=== PATIENT | female | born 1940 | race Caucasian/White ===

== ENCOUNTER → 2016-04-25 | Outpatient (CLI) | payer MEDICARE, BC ==
[2016-04-25 17:45] LABS: ALT 54 U/L (9-52); AST 82 U/L (14-36); Alkaline Phosphatase 67 U/L (38-126); Anion Gap 11 mmol/L; Blood Urea Nitrogen 17 mg/dL (7-17); Calcium 9.8 mg/dL (8.4-10.2); Carbon Dioxide 30 mmol/L (22-30); Chloride 102 mmol/L (98-107); Glucose 139 mg/dL (74-99); Non-African American GFR(MDRD) >60 (>60 ml/min/1.73 sqM); Potassium 4.1 mmol/L (3.5-5.1); Sodium 143 mmol/L (137-145); Total Bilirubin 0.4 mg/dL (0.2-1.3); Total Protein 7.3 g/dL (6.3-8.2)
== END | disposition home or self-care (01) ==
LOC: LABWHC1 16:41
PROVIDERS: ATTEND Internal Medicine Endocrinology, Diabetes & Metabolism
DX: E21.0 Primary hyperparathyroidism (principal); E03.9 Hypothyroidism, unspecified
CPT/HCPCS: 36415; 80053; 82306; 83970; 84443

== ENCOUNTER → 2016-08-08 | Outpatient (CLI) | payer MEDICARE, BC ==
[2016-08-08 13:20] LABS: ALT 30 U/L (9-52); AST 39 U/L (14-36); Alkaline Phosphatase 71 U/L (38-126); Anion Gap 8 mmol/L; Blood Urea Nitrogen 17 mg/dL (7-17); Calcium 9.9 mg/dL (8.4-10.2); Carbon Dioxide 28 mmol/L (22-30); Chloride 105 mmol/L (98-107); Glucose 80 mg/dL (74-99); Non-African American GFR(MDRD) >60 (>60 ml/min/1.73 sqM); Potassium 4.4 mmol/L (3.5-5.1); Sodium 141 mmol/L (137-145); Total Bilirubin 0.6 mg/dL (0.2-1.3); Total Protein 7.4 g/dL (6.3-8.2)
== END | disposition home or self-care (01) ==
LOC: LABWHC1 12:02
PROVIDERS: ATTEND Internal Medicine Endocrinology, Diabetes & Metabolism
DX: E03.8 Other specified hypothyroidism (principal); E21.0 Primary hyperparathyroidism
CPT/HCPCS: 36415; 80053; 82306; 83970; 84443

== ENCOUNTER → 2016-12-13 | Outpatient (CLI) | payer MEDICARE, BC ==
[2016-12-13 13:59] LABS: ALT 31 U/L (9-52); AST 30 U/L (14-36); Alkaline Phosphatase 74 U/L (38-126); Anion Gap 7 mmol/L; Blood Urea Nitrogen 16 mg/dL (7-17); Calcium 9.8 mg/dL (8.4-10.2); Carbon Dioxide 29 mmol/L (22-30); Chloride 105 mmol/L (98-107); Glucose 79 mg/dL (74-99); Non-African American GFR(MDRD) >60 (>60 ml/min/1.73 sqM); Potassium 4.9 mmol/L (3.5-5.1); Sodium 141 mmol/L (137-145); Total Bilirubin 0.4 mg/dL (0.2-1.3); Total Protein 7.2 g/dL (6.3-8.2)
== END | disposition home or self-care (01) ==
LOC: LABWHC1 13:12
PROVIDERS: ATTEND Internal Medicine Endocrinology, Diabetes & Metabolism
DX: E21.0 Primary hyperparathyroidism (principal); E55.9 Vitamin D deficiency, unspecified; E03.8 Other specified hypothyroidism
CPT/HCPCS: 36415; 80053; 82306; 83970; 84443

== ENCOUNTER → 2017-04-25 | Outpatient (CLI) | payer MEDICARE, BC ==
--- NOTE | 2017-04-25 16:16 | BD ---
EXAMINATION TYPE: MG DEXA axial skeleton. DATE OF EXAM: 04/25/2017 COMPARISON: NONE CLINICAL HISTORY: Height: 67 Weight: 67 FRAX RISK QUESTIONS: Alcohol (3 or more units per day): no Family History (Parent hip fracture): no Glucocorticoids (More than 3mos): no (Ex: prednisone, prednisolone, methylprednisolone, dexamethasone, and hydrocortisone). History of Fracture in Adulthood: no Secondary Osteoporosis: 1. Type 1 Diabetes: no 2. Hyperthyroidism: no 3. Menopause before 45: no 4. Malnutrition: no 5. Chronic liver disease: no Rheumatoid Arthritis: no Current Tobacco Use: no RISK FACTORS HISTORY OF: Hip Fracture (Right/Left): no Spine Fracture: no History of Wrist Fracture: no Surgery to Spine/Hip(right/left)/Wrist (right/left): no Family History of Osteoporosis: yes Active: yes Diet low in dairy products/other sources of calcium: no Postmenopausal woman: age 54 Lost more than 2 inches in height since high school: yes Frequent falls: no Poor Health: no Hyperparathyroidism: no Adrenal Insufficiency: no MEDICATIONS: vit d, baby aspirin, vit e, calcium Thyroid Medications: levothyroxine How Lon year Additional History: EXAM MEASUREMENTS: Bone mineral densitometry was performed using the [employer] System. Bone mineral density as measured about the Lumbar spine is: ----- L1-L4(G/cm2): 1.047 T Score Values are as follows: ----- L2: -0.8 ----- L3: -0.9 ----- L4: -1.8 ----- L1-L4: -1.1 Bone mineral density has: decreased -0.8 % since study of: 03.16.2015 Bone mineral density about the R hip (g/cm2): 0.863 Bone mineral density about the L hip (g/cm2): 0.822 T Score values are as follows: -----R Neck: -1.3 -----L Neck: -1.6 -----R Total: -0.9 -----L Total: -0.9 Bone mineral density has: decreased -0.3 % since study of: 03.16.2015 IMPRESSION: Osteopenia (T Score between -2.5 and -1 as noted by T score values There is slightly increased risk of fracture and the patient may be considered for treatment. Re-Screen 2-5 years. NOTE: T-SCORE=SD OF THE YOUNG ADULT MEAN.
--- NOTE | 2017-04-26 11:11 | MM ---
Reason for exam: screening (asymptomatic). Last mammogram was performed 1 year and 1 month ago. History: Patient is postmenopausal and had first child at age 33. Family history of breast cancer in paternal aunt. Benign stereotactic core biopsy of the left breast, February 27, 2002. Benign excisional biopsy of the left breast, July 29, 2001. Stereotactic core biopsy of the left breast, July 18, 2001. Benign stereotactic core biopsy of the left breast, December 27, 2000. Took estrogen for 4 years. Physical Findings: A clinical breast exam by your physician is recommended on an annual basis and results should be correlated with mammographic findings. MG Screening Mammo w CAD Bilateral CC and MLO view(s) were taken. Prior study comparison: March 21, 2016, bilateral MG screening mammo w CAD. March 16, 2015, bilateral MG screening mammo w CAD. There are scattered fibroglandular densities. There is no discrete abnormality. No significant changes when compared with prior studies. ASSESSMENT: Negative, BI-RAD 1 RECOMMENDATION: Routine screening mammogram of both breasts in 1 year.
== END | disposition home or self-care (01) ==
LOC: RADMAMWWP 13:50
PROVIDERS: ATTEND Obstetrics & Gynecology
DX: Z12.31 Encounter for screening mammogram for malignant neoplasm of breast (principal); M85.80 Other specified disorders of bone density and structure, unspecified site; M89.9 Disorder of bone, unspecified
CPT/HCPCS: 77067; 77080

== ENCOUNTER → 2017-05-29 | Outpatient (CLI) | payer MEDICARE, BC ==
[2017-05-29 14:28] LABS: ALT 33 U/L (9-52); AST 28 U/L (14-36); Albumin 4.3 g/dL (3.5-5.0); Alkaline Phosphatase 71 U/L (38-126); Anion Gap 10 mmol/L; Blood Urea Nitrogen 20 mg/dL (7-17); Calcium 10.2 mg/dL (8.4-10.2); Carbon Dioxide 31 mmol/L (22-30); Chloride 102 mmol/L (98-107); Glucose 87 mg/dL (74-99); Potassium 4.6 mmol/L (3.5-5.1); Sodium 143 mmol/L (137-145); Total Bilirubin 0.4 mg/dL (0.2-1.3); Total Protein 7.4 g/dL (6.3-8.2)
[2017-05-29 18:53] LABS: Vitamin D 25 Hydroxy 30.9 ng/mL (30.0-100.0)
== END | disposition home or self-care (01) ==
LOC: LABWHC1 13:27
PROVIDERS: ATTEND Internal Medicine Endocrinology, Diabetes & Metabolism
DX: E03.8 Other specified hypothyroidism (principal); E55.9 Vitamin D deficiency, unspecified; E83.52 Hypercalcemia
CPT/HCPCS: 36415; 80053; 82306; 83970; 84443

== ENCOUNTER → 2017-08-14 | Outpatient (CLI) | payer MEDICARE, BC | END | disposition home or self-care (01) | LOC: LABWHC1 12:25 | PROVIDERS: ATTEND Otolaryngology | DX: H91.91 Unspecified hearing loss, right ear (principal); H93.3X1 Disorders of right acoustic nerve | CPT/HCPCS: 36415; 82565 ==

== ENCOUNTER → 2017-08-29 | Outpatient (CLI) | payer MEDICARE, BC ==
--- NOTE | 2017-08-29 12:17 | MR ---
EXAMINATION TYPE: MR iac wo/w con DATE OF EXAM: 08/29/2017 COMPARISON: NONE HISTORY: Hearing loss TECHNIQUE: Multiplanar, multisequence images of the brain and brainstem is performed without and with IV contras t, utilizing 7 mL intravenous Gadavist . FINDINGS: Diffusion weighted images demonstrate no evidence of a recent infarct or other diffusion ab normality. Craniocervical junction is maintained. There is bilateral mastoiditis and evidence of sinusitis. Mild generalized degenerative change seen and there is nonspecific diffuse and focal areas of abnorma l signal within the white matter. Most likely in the basis of remote microvascular ischemia. No evidence of cerebellopontine angle mass. Visualized oropharynx and nasopharynx symmetric. IMPRESSION: 1. Bilateral mastoiditis and chronic sinusitis. 2. No evidence of cerebellopontine angle mass or acoustic schwannoma. 3. Degenerative and nonspecific white matter changes most typical remote microvascular ischemia.
== END | disposition home or self-care (01) ==
LOC: RADMRIMAIN 08:43
PROVIDERS: ATTEND Otolaryngology
DX: R90.89 Other abnormal findings on diagnostic imaging of central nervous system (principal); H91.91 Unspecified hearing loss, right ear; H93.3X1 Disorders of right acoustic nerve
CPT/HCPCS: 70553; A9581

== ENCOUNTER 2017-09-30 17:29 | Emergency (ER) | payer MEDICARE, BC ==
[2017-09-30 17:53] VITALS: BP 192/79; PULSE 58; RESP 18; TEMP 98.3
[2017-09-30] MEDS ORDERED: DIPH,PERTUS(ACELL)TETVAC-LF 0.5 ML VIAL IM ONE (18:05)
--- NOTE | 2017-09-30 18:26 | ED ---
Wound/Laceration HPI - General Chief Complaint: Wound/Laceration Stated Complaint: head injury, multiple abrasions on arms and legs Time Seen by Provider: 09/30/17 17:57 Source: patient Mode of arrival: ambulatory Limitations: no limitations - History of Present Illness Initial Comments: 77-year-old female patient presents to the emergency department today for evaluation after expressing a head injury and fall. Patient states that she was loading things into the back of her van when her accidentally closed a nunez on her head. Patient states that the corner of the metal piece struck her in the head. She states this causes her to lose her balance and fall down landing on her right knee and right elbow. Patient denies hitting her head during the fall. She denies any loss of consciousness with this. She denies any headache, neck pain, back pain, dizziness, weakness, nausea, or vomiting. She denies any numbness or tingling anywhere. Patient denies any difficulty with range of motion to the right elbow or the right knee. She is unsure when her last tetanus vaccine was given. Patient denies any chest pain, shortness of breath, abdominal pain, or difficulties with bowel movements or urination. - Related Data Allergies Allergy/AdvReac Type Severity Reaction Status Date / Time No Known Allergies Allergy Verified 09/30/17 17:53 Review of Systems ROS Statement: Those systems with pertinent positive or pertinent negative responses have been documented in the HPI. ROS Other: All systems not noted in ROS Statement are negative. Past Medical History Past Medical History: No Reported History History of Any Multi-Drug Resistant Organisms: None Reported Past Surgical History: Ear Surgery Past Psychological History: No Psychological Hx Reported Smoking Status: Current every day smoker Past Alcohol Use History: None Reported Past Drug Use History: None Reported General Exam Limitations: no limitations General appearance: alert, in no apparent distress, other (This is a well- developed, well-nourished elderly female patient in no acute distress. Vital signs upon presentation are temperature 98.3F, pulse 58, respirations 18, blood pressure 192/79, pulse ox 100% on room air.) Head exam: Present: other (2 cm laceration noted to the frontal scalp. There is no step-off or bony deformity noted to palpation around the laceration site. Bleeding is controlled.) Eye exam: Present: normal appearance, PERRL, EOMI. Absent: scleral icterus, conjunctival injection, nystagmus, periorbital swelling ENT exam: Present: normal exam, normal oropharynx, mucous membranes moist Neck exam: Present: normal inspection, full ROM, other (Nontender, no step-off, no deformity to firm midline palpation of the posterior cervical spine. Full range of motion without pain or limitation.). Absent: tenderness, meningismus, lymphadenopathy Respiratory exam: Present: normal lung sounds bilaterally. Absent: respiratory distress, wheezes, rales, rhonchi, stridor Cardiovascular Exam: Present: regular rate, normal rhythm, normal heart sounds. Absent: systolic murmur, diastolic murmur, rubs, gallop, clicks Extremities exam: Present: full ROM, normal capillary refill, other (Patient exhibits mild soft tissue swelling and abrasion to the extensor surface of the right elbow. Patient has full range of motion of the joint, no bony tenderness , skin is pink, warm, and dry. Cap refills less than 3 seconds. Radial pulses are 2+ and equal bilaterally. Patient exhibits ecchymosis, mild soft tissue swelling, and abrasion to the right lateral knee. Patient has full range of motion of the joint. No pain with weightbearing. No bony tenderness. Skin to the lower trauma is is pink, warm, and dry. Cap refills less than 3 seconds. Post tibial pulses are 2+ and equal bilaterally.). Absent: normal inspection, tenderness, pedal edema, joint swelling, calf tenderness Back exam: Present: normal inspection, other (Nontender, no step-off, no deformity to firm midline palpation of the thoracic and lumbar vertebrae. Full range of motion without pain or limitation.). Absent: vertebral tenderness Neurological exam: Present: alert, oriented X3, CN II-XII intact Psychiatric exam: Present: normal affect, normal mood Skin exam: Present: warm, dry, intact, normal color. Absent: rash Course Vital Signs 09/30/17 17:48 Temperature 98.3 F Pulse Rate 58 L Respiratory 18 Rate Blood Pressure 192/79 O2 Sat by Pulse 100 Oximetry Medical Decision Making - Medical Decision Making 77-year-old female patient presents to the emergency department today for evaluation of a laceration to her scalp and multiple abrasions after expressing a fall today. Physical examination did reveal 2 cm laceration to the frontal scalp. There is no bony step-off or deformity noted. Patient had no headache or neurologic complaints. Patient is neurologically intact. Patient also exhibits abrasions to the right elbow and the right knee however she does have full range of motion of both joints with no bony tenderness. I did discuss x- rays with the patient, she does not feel anything is broken or painful enough at this time to need x-rays. We will hold off. Patient does take 81 mg of aspirin but no other anticoagulation. She currently denies headache and again is neurologically intact so we will with hold CT at this time as well. I did insert 2 martha into the scalp laceration. We did discuss signs or symptoms of worsening head injury in great detail. She is instructed to return here immediately for any new, worsening, or concerning symptoms. Also did discuss wound care and signs or symptoms of infection. She is instructed to return in 7 days for staple removal. She is instructed to follow-up with her primary care physician for recheck in 1-2 days. Return parameters discussed in detail. She verbalizes understanding and agrees with this plan. Disposition Clinical Impression: Scalp laceration, Abrasion of right elbow, Abrasion of right knee Disposition: HOME SELF-CARE Condition: Good Instructions: Laceration (ED), Head Injury (ED), Abrasion (ED), Staple Care (ED ) Additional Instructions: Keep wounds clean and dry. Monitor for signs or symptoms of infection including but not limited to redness, swelling, drainage of pus, fever, or chills. Monitor for signs or symptoms of worsening head injury including but not limited to headache, blurred vision, double vision, nausea, vomiting, or confusion. Follow-up with your primary care physician for recheck in 1-2 days. Have martha removed in 7 days. Return here immediately for any new, worsening, or concerning symptoms. Is patient prescribed a controlled substance at d/c from ED?: No Referrals: Ryland Lemus DO [Primary Care Provider] - 1-2 days Time of Disposition: 18:26
== END 2017-09-30 18:32 | disposition home or self-care (01) ==
LOC: EC 17:29
DX: S01.01XA Laceration without foreign body of scalp, initial encounter (principal); S80.01XA Contusion of right knee, initial encounter; S50.311A Abrasion of right elbow, initial encounter; F17.200 Nicotine dependence, unspecified, uncomplicated; Z23 Encounter for immunization; W26.8XXA Contact with other sharp object(s), not elsewhere classified, initial encounter; W18.39XA Other fall on same level, initial encounter; Y93.89 Activity, other specified
CPT/HCPCS: 12001; 90471; 90715; 99283

== ENCOUNTER → 2017-11-20 | Outpatient (CLI) | payer MEDICARE, BC ==
[2017-11-20 15:39] LABS: ALT 32 U/L (9-52); AST 30 U/L (14-36); Albumin 4.3 g/dL (3.5-5.0); Alkaline Phosphatase 64 U/L (38-126); Anion Gap 7 mmol/L; Blood Urea Nitrogen 17 mg/dL (7-17); Carbon Dioxide 28 mmol/L (22-30); Chloride 106 mmol/L (98-107); Glucose 79 mg/dL (74-99); Sodium 141 mmol/L (137-145); Total Bilirubin 0.3 mg/dL (0.2-1.3); Total Protein 7.2 g/dL (6.3-8.2)
[2017-11-20 18:21] LABS: Vitamin D 25 Hydroxy 41.9 ng/mL (30.0-100.0)
[2017-11-20 18:29] LABS: Parathyroid Hormone Intact 69.1 pg/mL (14.0-72.0)
== END | disposition home or self-care (01) ==
LOC: LABWHC1 15:04
PROVIDERS: ATTEND Internal Medicine Endocrinology, Diabetes & Metabolism
DX: E55.9 Vitamin D deficiency, unspecified (principal); E03.8 Other specified hypothyroidism
CPT/HCPCS: 36415; 80053; 82306; 83970; 84443

== ENCOUNTER → 2018-05-12 | Outpatient (CLI) | payer MEDICARE, BC ==
--- NOTE | 2018-05-17 11:22 | MM ---
Reason for exam: screening (asymptomatic). Last mammogram was performed 1 year and 1 month ago. History: Patient is postmenopausal and had first child at age 33. Family history of breast cancer in paternal aunt. Benign stereotactic core biopsy of the left breast, February 27, 2002. Benign excisional biopsy of the left breast, July 29, 2001. Stereotactic core biopsy of the left breast, July 18, 2001. Benign stereotactic core biopsy of the left breast, December 27, 2000. Took estrogen for 4 years. MG Screening Mammo w CAD Bilateral CC and MLO view(s) were taken. Prior study comparison: April 25, 2017, bilateral MG screening mammo w CAD. March 21, 2016, bilateral MG screening mammo w CAD. The breast tissue is heterogeneously dense. This may lower the sensitivity of mammography. Previous mammotome biopsy in the left breast x2. There is chronic nodularity in both breast. No discrete abnormality. ASSESSMENT: Benign, BI-RAD 2 RECOMMENDATION: Routine screening mammogram of both breasts in 1 year.
== END | disposition home or self-care (01) ==
LOC: RADMAMWWP 14:56
PROVIDERS: ATTEND Obstetrics & Gynecology
DX: Z12.31 Encounter for screening mammogram for malignant neoplasm of breast (principal)
CPT/HCPCS: 77067

== ENCOUNTER → 2018-05-30 | Outpatient (CLI) | payer MEDICARE, BC ==
[2018-05-30 18:55] LABS: Albumin 4.4 g/dL (3.80-4.90); Albumin/Globulin Ratio 1.69 (1.60-3.17); Anion Gap 9.4 mmol/L (4.00-12.00); Calcium 9.9 mg/dL (8.7-10.3); Carbon Dioxide 28.6 mmol/L (21.6-31.8); Globulin 2.6 g/dL (1.6-3.3); Potassium 4.3 mmol/L (3.5-5.5); Total Bilirubin 0.4 mg/dL (0.2-1.2)
[2018-05-30 18:56] LABS: Parathyroid Hormone Intact 68.3 pg/mL (14.0-72.0)
[2018-05-30 18:57] LABS: Vitamin D 25 Hydroxy 37.7 ng/mL (30.0-100.0)
== END | disposition home or self-care (01) ==
LOC: LABWHC1 13:39
PROVIDERS: ATTEND Internal Medicine Endocrinology, Diabetes & Metabolism
DX: E03.8 Other specified hypothyroidism (principal); E83.52 Hypercalcemia
CPT/HCPCS: 36415; 80053; 82306; 83970; 84443

== ENCOUNTER → 2018-11-27 | Outpatient (CLI) | payer MEDICARE, BC ==
[2018-11-27 23:35] LABS: African American GFR (CKD) 81.8 (60.0-200.0); Albumin 4.3 g/dL (3.80-4.90); Albumin/Globulin Ratio 1.95 (1.60-3.17); Anion Gap 7.9 mmol/L (4.00-12.00); BUN/Creat Ratio 21.25 Ratio (12.00-20.00); Carbon Dioxide 27.1 mmol/L (21.6-31.8); Globulin 2.2 g/dL (1.6-3.3); Potassium 4.4 mmol/L (3.5-5.5); Total Bilirubin 0.4 mg/dL (0.3-1.2); Total Protein 6.5 g/dL (6.2-8.2)
[2018-11-27 23:36] LABS: Vitamin D 25 Hydroxy 40.6 ng/mL (30.0-100.0)
== END | disposition home or self-care (01) ==
LOC: LABWHC1 14:10
PROVIDERS: ATTEND Internal Medicine Endocrinology, Diabetes & Metabolism
DX: E03.8 Other specified hypothyroidism (principal); E83.52 Hypercalcemia
CPT/HCPCS: 36415; 80053; 82306; 83970; 84443

== ENCOUNTER → 2019-05-27 | Outpatient (CLI) | payer MEDICARE, BC ==
--- NOTE | 2019-05-27 15:52 | BD ---
EXAMINATION TYPE: Axial Bone Density DATE OF EXAM: 05/27/2019 COMPARISON: 2018 CLINICAL HISTORY: M [age] Height: 5 FT 5 1/2 IN Weight: 175 FRAX RISK QUESTIONS: Alcohol (3 or more units per day): NO Family History (Parent hip fracture): NO Glucocorticoids (More than 3mos): NO (Ex: prednisone, prednisolone, methylprednisolone, dexamethasone, and hydrocortisone). History of Fracture in Adulthood: NO Secondary Osteoporosis: 1. Type 1 Diabetes: NO 2. Hyperthyroidism: NO 3. Menopause before 45: NO 4. Malnutrition: NO 5. Chronic liver disease: NO Rheumatoid Arthritis: NO Current Tobacco Use: NO RISK FACTORS HISTORY OF: Family History of Osteoporosis: YES Active: YES Postmenopausal woman: AGE 54 Take estrogen and/or progesterone medications: TOOK HRT APPROX 5 YEARS NO LONGER Lost more than 2 inches in height since high school: YES MEDICATIONS: Thyroid Medications: YES Which medication: LEVOTHYROXINE How Long: SEVERAL YEARS Additional Medications: LEVOTHYROXINE, Additional History: EXAM MEASUREMENTS: Bone mineral densitometry was performed using the [employer] System. Bone mineral density as measured about the Lumbar spine is: ----- L1-L4(G/cm2): 1.058 T Score Values are as follows: ----- L2: -0.4 ----- L3: -0.7 ----- L4: -2.0 ----- L1-L4: -1.0 Bone mineral density has: INCREASED 1.3 % since study of: 2017 Bone mineral density about the R hip (g/cm2): 0.867 Bone mineral density about the L hip (g/cm2): 0.838 T Score values are as follows: -----R Neck: -1.2 -----L Neck: -1.4 -----R Total: -0.9 -----L Total: -0.8 Bone mineral density has: INCREASED 0.3 % since study of: 2017 IMPRESSION: Osteopenia (T Score between -2.5 and -1). There is slightly increased risk of fracture and the patient may be considered for treatment. Re-Screen 2-5 years. NOTE: T-SCORE=SD OF THE YOUNG ADULT MEAN.
--- NOTE | 2019-05-28 14:10 | MM ---
Reason for exam: screening (asymptomatic). Last mammogram was performed 1 year ago. History: Patient is postmenopausal and had first child at age 33. Family history of breast cancer in paternal aunt. Benign stereotactic core biopsy of the left breast, February 27, 2002. Benign excisional biopsy of the left breast, July 29, 2001. Stereotactic core biopsy of the left breast, July 18, 2001. Benign stereotactic core biopsy of the left breast, December 27, 2000. Took estrogen for 4 years. Physical Findings: A clinical breast exam by your physician is recommended on an annual basis and results should be correlated with mammographic findings. MG Screening Mammo w CAD Bilateral CC and MLO view(s) were taken. Prior study comparison: May 12, 2018, bilateral MG screening mammo w CAD. April 25, 2017, bilateral MG screening mammo w CAD. There are scattered fibroglandular densities. No significant changes when compared with prior studies. ASSESSMENT: Benign, BI-RAD 2 RECOMMENDATION: Routine screening mammogram of both breasts in 1 year.
== END | disposition home or self-care (01) ==
LOC: RADMAMWWP 14:56
PROVIDERS: ATTEND Obstetrics & Gynecology
DX: Z12.31 Encounter for screening mammogram for malignant neoplasm of breast (principal); M85.80 Other specified disorders of bone density and structure, unspecified site
CPT/HCPCS: 77067; 77080

== ENCOUNTER → 2019-06-09 | Outpatient (CLI) | payer MEDICARE, BC | LOC: LABWHC1 15:09 | PROVIDERS: ATTEND Internal Medicine Endocrinology, Diabetes & Metabolism | DX: E55.9 Vitamin D deficiency, unspecified (principal); E83.52 Hypercalcemia; E03.8 Other specified hypothyroidism | CPT/HCPCS: 36415; 82306; 83970; 84443 ==

== ENCOUNTER → 2020-05-31 | Outpatient (CLI) | payer MEDICARE, BC ==
[2020-06-01 01:17] LABS: African American GFR (CKD) 80.7 (60.0-200.0); Albumin 4.9 g/dL (3.80-4.90); Albumin/Globulin Ratio 2.13 (1.60-3.17); Anion Gap 9.8 mmol/L (4.00-12.00); Calcium 9.9 mg/dL (8.7-10.3); Carbon Dioxide 27.2 mmol/L (21.6-31.8); Globulin 2.3 g/dL (1.6-3.3); Non-African American GFR(CKD) 69.6 (60.0-200.0); Total Bilirubin 0.3 mg/dL (0.3-1.2); Total Protein 7.2 g/dL (6.2-8.2)
== END | disposition home or self-care (01) ==
LOC: LABWHC1 15:06
PROVIDERS: ATTEND Internal Medicine Endocrinology, Diabetes & Metabolism
DX: E55.9 Vitamin D deficiency, unspecified (principal); E03.8 Other specified hypothyroidism
CPT/HCPCS: 36415; 80053; 82306; 84443

== ENCOUNTER → 2020-06-23 | Outpatient (CLI) | payer MEDICARE, BC ==
--- NOTE | 2020-06-24 11:10 | MM ---
Reason for exam: screening (asymptomatic). Last mammogram was performed 1 year and 1 month ago. History: Patient is postmenopausal and had first child at age 33. Family history of breast cancer in paternal aunt. Benign stereotactic core biopsy of the left breast, February 27, 2002. Benign excisional biopsy of the left breast, July 29, 2001. Stereotactic core biopsy of the left breast, July 18, 2001. Benign stereotactic core biopsy of the left breast, December 27, 2000. Took estrogen for 4 years. Physical Findings: A clinical breast exam by your physician is recommended on an annual basis and results should be correlated with mammographic findings. MG Screening Mammo w CAD Bilateral CC and MLO view(s) were taken. Prior study comparison: May 27, 2019, bilateral MG screening mammo w CAD. May 12, 2018, bilateral MG screening mammo w CAD. There are scattered fibroglandular densities. Previous mammotome biopsy in the left breast x 2. No significant changes when compared with prior studies. ASSESSMENT: Benign, BI-RAD 2 RECOMMENDATION: Routine screening mammogram of both breasts in 1 year.
== END ==
LOC: RADMAMWWP 16:24
PROVIDERS: ATTEND Obstetrics & Gynecology
DX: Z12.31 Encounter for screening mammogram for malignant neoplasm of breast (principal); Z78.0 Asymptomatic menopausal state; Z80.3 Family history of malignant neoplasm of breast
CPT/HCPCS: 77067

== ENCOUNTER → 2021-01-06 | Outpatient (CLI) | payer MEDICARE, BC ==
[2021-01-07 16:28] LABS: African American GFR (CKD) 80.7 (60.0-200.0); Albumin 4.9 g/dL (3.80-4.90); Albumin/Globulin Ratio 1.81 (1.60-3.17); Anion Gap 13.7 mmol/L (4.00-12.00); Calcium 9.8 mg/dL (8.7-10.3); Carbon Dioxide 22.3 mmol/L (21.6-31.8); Globulin 2.7 g/dL (1.6-3.3); Non-African American GFR(CKD) 69.6 (60.0-200.0); Total Bilirubin 0.4 mg/dL (0.3-1.2); Total Protein 7.6 g/dL (6.2-8.2)
== END | disposition home or self-care (01) ==
LOC: LABWHC1 15:06
PROVIDERS: ATTEND Internal Medicine Endocrinology, Diabetes & Metabolism
DX: E03.8 Other specified hypothyroidism (principal); E55.9 Vitamin D deficiency, unspecified
CPT/HCPCS: 36415; 80053; 82306; 84443

== ENCOUNTER → 2021-07-20 | Outpatient (CLI) | payer MEDICARE, BC ==
[2021-07-20 18:20] LABS: Chol/HDL Ratio 2.54 Ratio; LDL Cholesterol,Calculated 105.4 mg/dL (0.0-131.0); VLDL Calculation 15.16 mg/dL (5.00-40.00)
[2021-07-20 18:31] LABS: ALT 29 U/L (8-44); AST 36 U/L (13-35); Albumin 4.4 g/dL (3.8-4.9); Albumin/Globulin Ratio 1.55 (1.60-3.17); Alkaline Phosphatase 88 U/L (41-126); BUN/Creat Ratio 19.11 Ratio (12.00-20.00); Blood Urea Nitrogen 17.1 mg/dL (9.0-27.0); Carbon Dioxide 23.9 mmol/L (20.0-27.5); Chloride 103 mmol/L (96-109); Globulin 2.9 g/dL (1.6-3.3); Glucose 95 mg/dL (70-110); Non-African American GFR(CKD) 60.4 (60.0-200.0); Potassium 4.6 mmol/L (3.5-5.5); Sodium 139 mmol/L (135-145); Total Protein 7.3 g/dL (6.2-8.2)
== END | disposition home or self-care (01) ==
LOC: LABWHC1 13:15
PROVIDERS: ATTEND Internal Medicine Endocrinology, Diabetes & Metabolism
DX: E03.8 Other specified hypothyroidism (principal); E83.52 Hypercalcemia; E78.5 Hyperlipidemia, unspecified
CPT/HCPCS: 36415; 80053; 80061; 83970; 84443

== ENCOUNTER → 2021-09-12 | Outpatient (CLI) | payer MEDICARE, BC ==
--- NOTE | 2021-09-12 18:10 | BD ---
EXAMINATION TYPE: Axial Bone Density DATE OF EXAM: 09/12/2021 COMPARISON: 05/27/2019 CLINICAL HISTORY: 81 years year old Female. ICD-10 CODE: M85.88 Other disorder of bone density Height: 65.7 IN Weight: 174 LBS RISK FACTORS HISTORY OF: Active: YES Diet low in dairy products/other sources of calcium: YES Postmenopausal woman: AGE 50 Take estrogen and/or progesterone medications: NOT NOW How lon YEARS Lost more than 2 inches in height since high school: YES 4 " MEDICATIONS: Thyroid Medications: YES Which medication: Levothyroxine How Lon YEARS Osteoporosis Medications: NOT NOW Which medication: Fosamax How Lon YEARS Additional Medications: CALCIUM, VIT D, LEVOTHYROXINE, BLOOD PRESSURE MEDS, CENTRUM SILVER, BABY ASPI RIN, VIT E, EXAM MEASUREMENTS: Bone mineral densitometry was performed using the [employer] System. Bone mineral density as measured about the Lumbar spine is: ----- L1-L4(G/cm2): 1.099 T Score Values are as follows: ----- L1: 0.0 ----- L2: 0.2 ----- L3: -1.5 ----- L4: -1.4 ----- L1-L4: -0.7 Bone mineral density has: Increased 0.7% since study of: 05/27/2019 Bone mineral density about the R hip (g/cm2): 0.856 Bone mineral density about the L hip (g/cm2): 0.829 T Score values are as follows: -----R Neck: -1.3 -----L Neck: -1.5 -----R Total: -1.0 -----L Total: -1.1 Bone mineral density has: Decreased -2.8% since study of: 05/27/2019 FRAX%s: The graph provided illustrates a 13.4 chance for a major osteoporotic fx and a 3.4 chance for the hips probability for fx in 10 years time. IMPRESSION: Osteopenia (T Score between -2.5 and -1). There is slightly increased risk of fracture and the patient may be considered for treatment. Re-Screen 2-5 years. NOTE: T-SCORE=SD OF THE YOUNG ADULT MEAN.
--- NOTE | 2021-09-14 14:54 | MM ---
Reason for Exam: Screening (asymptomatic). Last mammogram was performed 1 year(s) and 2 month(s) ago. Patient History: Menarche at age 13. First Full-Term at age 33. Late child-bearing (after 30). Postmenopausal. Estrogen for 4 years until age 62. 02/27/2002, Benign Stereotactic Core Biopsy on the left side. 07/29/2001, Benign Excisional Biopsy on the left side. 07/18/2001, Stereotactic Core Biopsy on the Left side. 12/27/2000, Benign Stereotactic Core Biopsy on the left side. Paternal aunt had breast cancer. Risk Values: Marita 5 year model risk: 3.3%. NCI Lifetime model risk: 4.8%. Film Views: Bilateral CC views were taken. Bilateral MLO views were taken. Prior Study Comparison: 05/12/2018 Bilateral Screening Mammogram, [facility]. 05/27/2019 Bilateral Screening Mammogram, [facility]. 06/23/2020 Bilateral Screening Mammogram, [facility]. Tissue Density: The breast tissue is almost entirely fat. Findings: Analyzed By CAD. ADDITIONAL MAMMOTOME BX IN LT BREAST 2000 There is no suspicious group of microcalcifications or new suspicious mass in either breast. Overall Assessment: Benign, BI-RAD 2 Management: Screening Mammogram of both breasts in 1 year. A clinical breast exam by your physician is recommended on an annual basis and results should be correlated with mammographic findings. Electronically signed and approved by: Nirav Mitchell M.D. Radiologis
== END | disposition home or self-care (01) ==
LOC: RADMAMWWP 12:48
PROVIDERS: ATTEND Obstetrics & Gynecology
DX: Z12.31 Encounter for screening mammogram for malignant neoplasm of breast (principal); M85.89 Other specified disorders of bone density and structure, multiple sites; Z78.0 Asymptomatic menopausal state; Z80.3 Family history of malignant neoplasm of breast
CPT/HCPCS: 77067; 77080

== ENCOUNTER → 2022-01-24 | Outpatient (CLI) | payer MEDICARE, BC ==
[2022-01-25 03:05] LABS: African American GFR (CKD) 87.6 (60.0-200.0); Albumin 4.4 g/dL (3.8-4.9); Albumin/Globulin Ratio 1.72 (1.60-3.17); Anion Gap 10.3 mmol/L (10.00-18.00); BUN/Creat Ratio 21.67 Ratio (12.00-20.00); Blood Urea Nitrogen 16.1 mg/dL (9.0-27.0); Calcium 9.9 mg/dL (8.7-10.3); Carbon Dioxide 27.5 mmol/L (20.0-27.5); Globulin 2.6 g/dL (1.6-3.3); Non-African American GFR(CKD) 75.6 (60.0-200.0); Potassium 4.1 mmol/L (3.5-5.5); Total Bilirubin 0.3 mg/dL (0.30-1.20)
== END | disposition home or self-care (01) ==
LOC: LABWHC1 14:14
PROVIDERS: ATTEND Internal Medicine Endocrinology, Diabetes & Metabolism
DX: E03.8 Other specified hypothyroidism (principal); E55.9 Vitamin D deficiency, unspecified
CPT/HCPCS: 36415; 80053; 82306; 84443

== ENCOUNTER → 2022-07-30 | Outpatient (CLI) | payer MEDICARE, BC ==
[2022-07-30 16:48] LABS: African American GFR (CKD) 79.6 (60.0-200.0); Albumin 4.5 g/dL (3.8-4.9); Albumin/Globulin Ratio 1.61 (1.60-3.17); Anion Gap 7.2 mmol/L (10.00-18.00); Blood Urea Nitrogen 14.4 mg/dL (9.0-27.0); Calcium 9.9 mg/dL (8.7-10.3); Carbon Dioxide 29.8 mmol/L (20.0-27.5); Globulin 2.8 g/dL (1.6-3.3); Non-African American GFR(CKD) 68.7 (60.0-200.0); Potassium 3.9 mmol/L (3.5-5.5); Total Bilirubin 0.3 mg/dL (0.30-1.20); Total Protein 7.3 g/dL (6.2-8.2)
== END | disposition home or self-care (01) ==
LOC: LABWHC1 12:15
PROVIDERS: ATTEND Internal Medicine Endocrinology, Diabetes & Metabolism
DX: E03.8 Other specified hypothyroidism (principal); E55.9 Vitamin D deficiency, unspecified; Z86.39 Personal history of other endocrine, nutritional and metabolic disease
CPT/HCPCS: 36415; 80053; 82306; 84443

== ENCOUNTER → 2022-09-13 | Outpatient (CLI) | payer MEDICARE, BC ==
--- NOTE | 2022-09-24 07:32 | MM ---
Reason for Exam: Screening (asymptomatic). Last screening mammogram was performed 12 month(s) ago. Patient History: Menarche at age 13. First Full-Term at age 33. Late child-bearing (after 30). Postmenopausal. Estrogen for 4 years until age 62. 02/27/2002, Benign Stereotactic Core Biopsy on the left side. 07/29/2001, Benign Excisional Biopsy on the left side. 07/18/2001, Stereotactic Core Biopsy on the Left side. 12/27/2000, Benign Stereotactic Core Biopsy on the left side. Paternal aunt had breast cancer. Risk Values: Marita 5 year model risk: 3.2%. NCI Lifetime model risk: 4.3%. Prior Study Comparison: 05/27/2019 Bilateral Screening Mammogram, [facility]. 06/23/2020 Bilateral Screening Mammogram, [facility]. 09/12/2021 Bilateral MG screening mammo w CAD, [facility]. Tissue Density: The breast tissue is almost entirely fat. Findings: Analyzed By CAD. . There are 2 biopsy clips in the left breast redemonstrated. More prominent 5 mm oval circumscribed mass in the right breast upper outer quadrant There is no suspicious group of microcalcifications in either breast. Overall Assessment: Incomplete: need additional imaging evaluation, BI-RAD 0 Management: Special View Mammogram of the right breast. Diagnostic Breast Ultrasound of the right breast. . Patient should continue monthly self-breast exams. A clinical breast exam by your physician is recommended on an annual basis. This exam should not preclude additional follow-up of suspicious palpable abnormalities. Note on Marita scores and lifetime risk: 1. A Marita score greater than 3% is considered moderate risk. If this is the case, consider specialist referral to assess eligibility for a risk reducing agent. 2. If overall lifetime risk for the development of breast cancer is 20% or higher, the patient may qualify for future screening with alternating mammogram and breast MRI. Electronically signed and approved by: Will Baird M.D.
== END | disposition home or self-care (01) ==
LOC: RADMAMWWP 14:22
PROVIDERS: ATTEND Obstetrics & Gynecology
DX: Z12.31 Encounter for screening mammogram for malignant neoplasm of breast (principal); Z80.3 Family history of malignant neoplasm of breast; Z78.0 Asymptomatic menopausal state
CPT/HCPCS: 77067

== ENCOUNTER → 2022-09-20 | Outpatient (CLI) | payer MEDICARE, BC ==
--- NOTE | 2022-09-20 10:47 | MM ---
Reason for Exam: Additional evaluation requested from abnormal screening. Last screening mammogram was performed less than 1 month ago. Patient History: Menarche at age 13. First Full-Term at age 33. Late child-bearing (after 30). Postmenopausal. Patient has history of breast feeding. Estrogen for 4 years until age 62. 02/27/2002, Benign Stereotactic Core Biopsy on the left side. 07/29/2001, Benign Excisional Biopsy on the left side. 07/18/2001, Stereotactic Core Biopsy on the Left side. 12/27/2000, Benign Stereotactic Core Biopsy on the left side. Paternal aunt had breast cancer. Risk Values: Marita 5 year model risk: 3.2%. NCI Lifetime model risk: 4.3%. Prior Study Comparison: 03/21/2016 Bilateral Screening Mammogram, [facility]. 05/27/2019 Bilateral Screening Mammogram, [facility]. 09/12/2021 Bilateral MG screening mammo w CAD, [facility]. 09/13/2022 Bilateral MG screening mammo w CAD, [facility]. Tissue Density: Right: The breast tissue is almost entirely fat. Findings: Analyzed By CAD. Focal asymmetry in the right breast approximately 9-10 cm from the nipple in the upper outer aspect measuring 5 to 7 mmFocal asymmetry in the right breast approximately 9-10 cm from the nipple in the upper outer aspect measuring 4-5 mm. Overall Assessment: Incomplete: need additional imaging evaluation, BI-RAD 0 Management: Diagnostic Breast Ultrasound of the right breast. Results were given to the patient verbally at the time of exam. Patient should continue monthly self-breast exams. A clinical breast exam by your physician is recommended on an annual basis. This exam should not preclude additional follow-up of suspicious palpable abnormalities. Note on Marita scores and lifetime risk: 1. A Marita score greater than 3% is considered moderate risk. If this is the case, consider specialist referral to assess eligibility for a risk reducing agent. 2. If overall lifetime risk for the development of breast cancer is 20% or higher, the patient may qualify for future screening with alternating mammogram and breast MRI. Electronically signed and approved by: John oRss DO
--- NOTE | 2022-09-20 10:52 | USB ---
Reason for Exam: Additional evaluation requested from abnormal screening. Patient History: Menarche at age 13. First Full-Term at age 33. Late child-bearing (after 30). Postmenopausal. Patient has history of breast feeding. Estrogen for 4 years until age 62. 02/27/2002, Benign Stereotactic Core Biopsy on the left side. 07/29/2001, Benign Excisional Biopsy on the left side. 07/18/2001, Stereotactic Core Biopsy on the Left side. 12/27/2000, Benign Stereotactic Core Biopsy on the left side. Paternal aunt had breast cancer. Risk Values: Marita 5 year model risk: 3.2%. NCI Lifetime model risk: 4.3%. Technique: Method: Targeted. Prior Study Comparison: 06/23/2020 Bilateral Screening Mammogram, [facility]. 09/12/2021 Bilateral MG screening mammo w CAD, [facility]. 09/13/2022 Bilateral MG screening mammo w CAD, [facility]. Findings: The upper outer quadrant of the right breast, the axilla of the right breast and the retroareolar of the right breast were scanned. Imaged: Ultrasound imaging of: Area of concern, retroareolar region and axilla. There is a anechoic cysts 10 cm nipple measuring up to 4 mm. Suspicious masses. Overall Assessment: Benign, BI-RAD 2 Management: Screening Mammogram of both breasts in 1 year. A clinical breast exam by your physician is recommended on an annual basis and results should be correlated with mammographic findings. This exam should not preclude additional follow-up of suspicious palpable abnormalities. Results were given to the patient verbally at the time of exam. Electronically signed and approved by: John Ross DO
== END | disposition home or self-care (01) ==
LOC: RADMAMWWP 09:56
PROVIDERS: ATTEND Obstetrics & Gynecology
DX: R92.8 Other abnormal and inconclusive findings on diagnostic imaging of breast (principal); Z78.0 Asymptomatic menopausal state; Z80.3 Family history of malignant neoplasm of breast
CPT/HCPCS: 77065; 76642; G0279; 77061

== ENCOUNTER → 2023-02-22 | Outpatient (CLI) | payer MEDICARE, BC | END | disposition home or self-care (01) | LOC: LABWHC1 09:33 | PROVIDERS: ATTEND Internal Medicine Endocrinology, Diabetes & Metabolism | DX: E03.8 Other specified hypothyroidism (principal); E55.9 Vitamin D deficiency, unspecified | CPT/HCPCS: 36415; 82306; 84443 ==

== ENCOUNTER → 2023-03-06 | Outpatient (CLI) | payer MEDICARE, BC | END | disposition home or self-care (01) | LOC: LABWHC1 13:51 | PROVIDERS: ATTEND Otolaryngology | DX: I10 Essential (primary) hypertension (principal) | CPT/HCPCS: 93005 ==

== ENCOUNTER 2023-07-21 17:45 | Emergency (ER) | payer MEDICARE, BC ==
[2023-07-21 18:20] VITALS: BP 153/77; PULSE 76; RESP 20; TEMP 98.2
--- NOTE | 2023-07-21 18:33 | ED ---
General Adult HPI - General Chief complaint: Skin/Abscess/Foreign Body Stated complaint: Skin rash Time Seen by Provider: 07/21/23 17:52 Source: patient Mode of arrival: ambulatory Limitations: no limitations - History of Present Illness Initial comments: 83-year-old female presenting to the ED with a chief complaint of rash. Patient reports 3 days ago onset of rash to the right side of her neck/right ear. Patient reports no new medications or any exposure to allergens. Denies any injuries to this area. Patient reports rash is nonpainful/not itchy. Denies worsening hearing loss of her right ear. Denies vision loss. Patient reports since Saturday it has seemed to spread more prompting presentation to the ED for further evaluation. Denies fever or chills. No other complaints at this time. - Related Data Previous Rx's Medication Instructions Recorded predniSONE 50 mg PO DAILY 7 Days #7 tab 07/21/23 valACYclovir HCL [Valtrex] 1,000 mg PO TID 7 Days #21 tablet 07/21/23 Allergies Allergy/AdvReac Type Severity Reaction Status Date / Time No Known Allergies Allergy Verified 07/21/23 17:50 Review of Systems ROS Statement: Those systems with pertinent positive or pertinent negative responses have been documented in the HPI. ROS Other: All systems not noted in ROS Statement are negative. Past Medical History Past Medical History: Hypertension, Thyroid Disorder History of Any Multi-Drug Resistant Organisms: None Reported Past Surgical History: Ear Surgery Past Psychological History: No Psychological Hx Reported Smoking Status: Never smoker Past Alcohol Use History: None Reported Past Drug Use History: None Reported General Exam Limitations: no limitations General appearance: alert, in no apparent distress Eye exam: Present: normal appearance ENT exam: Present: other (Right TM intact with no lesions. No perioral skin lesions. No intraoral skin lesions.) Respiratory exam: Present: normal lung sounds bilaterally Cardiovascular Exam: Present: regular rate GI/Abdominal exam: Present: soft Neurological exam: Present: alert, oriented X3 Skin exam: Present: warm, dry, other (Some erythema and swelling of the right external ear. No mastoid process tenderness to palpation. There is a rash on the right side of the patient's neck which seems to cross midline. Rash appears macular in nature with areas of vesicular/bullous lesions. Negative Nikolsky sign) Course Vital Signs 07/21/23 17:47 Temperature 98.2 F Pulse Rate 76 Respiratory 20 Rate Blood Pressure 153/77 O2 Sat by Pulse 99 Oximetry Medical Decision Making - Medical Decision Making Was pt. sent in by a medical professional or institution (KRISTY Ozuna, FUSE MAKER, urgent c are, hospital, or usp...) When possible be specific @ -No Did you speak to anyone other than the patient for history (EMS, parent, family, police, friend...)? What history was obtained from this source @ -No Did you review nursing and triage notes (agree or disagree)? Why? @ -I reviewed and agree with nursing and triage notes Were old charts reviewed (outside hosp., previous admission, EMS record, old EKG, old radiological studies, urgent care reports/EKG's, usp records)? Report findings @ -No old charts were reviewed Differential Diagnosis (chest pain, altered mental status, abdominal pain women, abdominal pain men, vaginal bleeding, weakness, fever, dyspnea, syncope, headache, dizziness, GI bleed, back pain, seizure, CVA, palpatations, mental health, musculoskeletal)? @ -Atopic dermatitis, exanthem, SJS, TEN, pemphigus vulgaris, bullous pemphigoid, toxic shock syndrome, scalded skin syndrome. This not meant to be an all-inclusive list. EKG interpreted by me (3pts min.). @ -None X-rays interpreted by me (1pt min.). @ -None done CT interpreted by me (1pt min.). @ -None done U/S interpreted by me (1pt. min.). @ -None done What testing was considered but not performed or refused? (CT, X-rays, U/S, labs)? Why? @ -None What meds were considered but not given or refused? Why? @ -None Did you discuss the management of the patient with other professionals (professionals i.e. KRISTY Ozuna, FUSE MAKER, lab, RT, psych nurse, social science professor, exterminator termite, teacher, commercial account officer, briefcase sewer)? Give summary @ -No Was smoking cessation discussed for >3mins.? @ -No Was critical care preformed (if so, how long)? @ -No Were there social determinants of health that impacted care today? How? (Homelessness, low income, unemployed, alcoholism, drug addiction, transportation, low edu. Level, literacy, decrease access to med. care, snf, rehab)? @ -No Was there de-escalation of care discussed even if they declined (Discuss DNR or withdrawal of care, Hospice)? DNR status @ -No What co-morbidities impacted this encounter? (DM, HTN, Smoking, COPD, CAD, Cancer, CVA, ARF, Chemo, Hep., AIDS, mental health diagnosis, sleep apnea, morbid obesity)? @ -None Was patient admitted / discharged? Hospital course, mention meds given and route, prescriptions, significant lab abnormalities, going to OR and other pertinent info. @ -Discharge 83-year-old female presenting to the ED with complaints of rash onset 3 days ago to the right side of her neck/ear. Rash is nonpainful, not itchy. Denies any new medications use. No fever or chills. No worsening hearing loss or vision loss. On examination patient has some erythema of the right external ear with some swelling. No mastoid process tenderness to palpation. A macular rash e xtends down to the neck which does seem to cross midline. There does appear to be bullous/vesicular lesions with this rash. Negative Nikolsky sign. At this time, unclear etiology of rash. A vesicle was aspirated and sample sent for HSV/Varicella testing. Patient started on valacyclovir and course of prednisone. Discharged home in stable condition with referral to see dermatology. Discussed strict return precautions with patient and family who verbalized agreement. Undiagnosed new problem with uncertain prognosis? @ -No Drug Therapy requiring intensive monitoring for toxicity (Heparin, Nitro, Insulin, Cardizem)? @ -No Were any procedures done? @ -No Diagnosis/symptom? @ -Rash Acute, or Chronic, or Acute on Chronic? @ -Acute Uncomplicated (without systemic symptoms) or Complicated (systemic symptoms)? @ -Complicated Side effects of treatment? @ -No Exacerbation, Progression, or Severe Exacerbation? @ -No Poses a threat to life or bodily function? How? (Chest pain, USA, [place], pneumonia, PE, COPD, DKA, ARF, appy, cholecystitis, CVA, Diverticulitis, Homicidal, Suicidal, threat to staff... and all critical care pts) @ -Possibly, however at this time unlikely Disposition Clinical Impression: Rash Disposition: HOME SELF-CARE Condition: Good Additional Instructions: Please return to the Emergency Department if symptoms worsen or any other co ncerns. Please follow-up with your PCP and dermatology. Please return if you are having worsening right ear hearing, right ear pain, visual loss, fever, sloughing of skin, or if rash rapidly spreads. Prescriptions: predniSONE 50 mg PO DAILY 7 Days #7 tab valACYclovir HCL [Valtrex] 1,000 mg PO TID 7 Days #21 tablet Is patient prescribed a controlled substance at d/c from ED?: No Referrals: Ryland Lemus DO [Primary Care Provider] - 1-2 days Time of Disposition: 18:42
[2023-07-24 10:13] LABS: Varicella zoster Virus by PCR DETECTED (Not detected)
== END 2023-07-21 18:53 | disposition home or self-care (01) ==
LOC: EC 17:45
DX: R21 Rash and other nonspecific skin eruption (principal)
CPT/HCPCS: 87529; 87798; 99283

== ENCOUNTER → 2023-09-23 | Outpatient (CLI) | payer MEDICARE, BC ==
--- NOTE | 2023-09-23 09:42 | MM ---
Reason for Exam: Clinical finding. Last mammogram was performed 1 year(s) and 1 month(s) ago. Patient History: Menarche at age 13. First Full-Term at age 33. Late child-bearing (after 30). Postmenopausal. Patient has history of breast feeding. Estrogen for 4 years until age 62. 02/27/2002, Benign Stereotactic Core Biopsy on the left side. 07/29/2001, Benign Excisional Biopsy on the left side. 07/18/2001, Stereotactic Core Biopsy on the Left side. 12/27/2000, Benign Stereotactic Core Biopsy on the left side. Paternal aunt had breast cancer. Risk Values: Marita 5 year model risk: 3.1%. NCI Lifetime model risk: 3.8%. Tissue Density: There are scattered areas of fibroglandular density. Findings: Analyzed By CAD. Unchanged asymmetric density posterior outer aspect of the right breast. 2 microcoils left breast from prior biopsies. No significant change from prior exams. Overall Assessment: Benign, BI-RAD 2 Management: Screening Mammogram of both breasts in 1 year. See note below in regards to patient's increased 5 year Marita score. Results were given to the patient verbally at the time of exam. Patient should continue monthly self-breast exams. A clinical breast exam by your physician is recommended on an annual basis. This exam should not preclude additional follow-up of suspicious palpable abnormalities. Note on Marita scores and lifetime risk: 1. A Marita score greater than 3% is considered moderate risk. If this is the case, consider specialist referral to assess eligibility for a risk reducing agent. 2. If overall lifetime risk for the development of breast cancer is 20% or higher, the patient may qualify for future screening with alternating mammogram and breast MRI. Electronically signed and approved by: Ab Kohli M.D. Radiologist
== END | disposition home or self-care (01) ==
LOC: RADMAMWWP 09:15
PROVIDERS: ATTEND Family Medicine
DX: R92.323 Mammographic fibroglandular density, bilateral breasts (principal); Z80.3 Family history of malignant neoplasm of breast; Z78.0 Asymptomatic menopausal state
CPT/HCPCS: 77066; G0279; 77062

== ENCOUNTER → 2023-11-21 | Outpatient (CLI) | payer MEDICARE, BC | END | disposition home or self-care (01) | LOC: LABWHC1 14:21 | PROVIDERS: ATTEND Internal Medicine Endocrinology, Diabetes & Metabolism | DX: E03.8 Other specified hypothyroidism (principal); E55.9 Vitamin D deficiency, unspecified | CPT/HCPCS: 36415; 82306; 84443 ==

== ENCOUNTER → 2024-03-06 | Outpatient (CLI) | payer MEDICARE, BC | END | disposition home or self-care (01) | LOC: LABPAT 12:15 | PROVIDERS: ATTEND Otolaryngology | DX: Z01.818 Encounter for other preprocedural examination (principal); I10 Essential (primary) hypertension; R94.31 Abnormal electrocardiogram [ECG] [EKG] | CPT/HCPCS: 93005 ==

== ENCOUNTER → 2024-07-23 | Outpatient (CLI) | payer MEDICARE, BC ==
[2024-07-23 19:34] LABS: BUN/Creat Ratio 24.57 Ratio (12.00-20.00); Blood Urea Nitrogen 17.2 mg/dL (9.0-27.0); Carbon Dioxide 26.8 mmol/L (21.6-31.8); Chloride 102 mmol/L (96-109); Glucose 94 mg/dL (70-110); Potassium 4.2 mmol/L (3.5-5.5); Sodium 138 mmol/L (135-145)
[2024-07-23 19:35] LABS: ALT 23 U/L (8-44); AST 31 U/L (13-35); Albumin 4.4 g/dL (3.8-4.9); Albumin/Globulin Ratio 1.63 Ratio (1.60-3.17); Alkaline Phosphatase 84 U/L (41-126); Calcium 10.1 mg/dL (8.7-10.3); Globulin 2.7 g/dL (1.6-3.3); Total Bilirubin 0.3 mg/dL (0.3-1.2); Total Protein 7.1 g/dL (6.2-8.2)
== END | disposition home or self-care (01) ==
LOC: LABWHC1 13:25
PROVIDERS: ATTEND Internal Medicine Endocrinology, Diabetes & Metabolism
DX: E55.9 Vitamin D deficiency, unspecified (principal); E03.8 Other specified hypothyroidism
CPT/HCPCS: 36415; 80053; 82306; 84443

== ENCOUNTER 2024-10-02 14:26 | Emergency (ER) | payer MEDICARE, BC ==
[2024-10-02 14:43] VITALS: TEMP 97.3
--- NOTE | 2024-10-02 14:45 | ED ---
Fall HPI - General Source: patient, RN notes reviewed Mode of arrival: ambulatory Limitations: no limitations - History of Present Illness MD Complaint: fall <Elida Stauffer - Last Filed: 10/02/24 14:44> - General Source: patient, RN notes reviewed Limitations: no limitations - History of Present Illness MD Complaint: fall Onset/Timin -: minutes(s) Time: 13:00 Fall From: standing When Fall Occurred: 1-3 hours POWDER GUARD Fall Witnessed: yes, by family Place Fall Occurred: street Loss of Consciousness: none Prolonged Down Time?: no Symptoms Prior to Fall: none Location: pelvis Location - Extremities: Left: Forearm Severity: mild Context: tripped/slipped Associated Symptoms: denies <Solomon Donohue - Last Filed: 10/02/24 20:07> - General Chief Complaint: Extremity Injury, Upper Stated Complaint: Fall, left wrist injury Time Seen by Provider: 10/02/24 14:40 - History of Present Illness Initial Comments: Quick Note: This is an 84-year-old female who presents to the emergency department for a fall. Patient tripped and fell earlier today and injured her left wrist. She does also have some mild pain to the left hip, but is still able to ambulate. Denies hitting her head or any LOC. (Elida Stauffer) This is an 84-year-old female presenting for injury following fall occurring at 1300 today. Patient states she was at a bar on cell when she stepped backwards, not realizing there was a step going down, falling backwards and falling onto her left hip while also cutting her left wrist. Patient denies striking head, loss of consciousness, headache, neck pain, other significant injury. Patient states she was ambulating immediately following the fall. Patient states bleeding was controlled shortly after ER arrival following bandaging. Endorses use of ASA 81 but otherwise denies blood thinner use. Endorses last receiving tetanus vaccination in 2018. (Solomon Donohue) - Related Data Previous Rx's Medication Instructions Recorded predniSONE 50 mg PO DAILY 7 Days #7 tab 07/21/23 valACYclovir HCL [Valtrex] 1,000 mg PO TID 7 Days #21 tablet 07/21/23 Allergies Allergy/AdvReac Type Severity Reaction Status Date / Time No Known Allergies Allergy Verified 10/02/24 14:43 Review of Systems ROS Other: All systems not noted in ROS Statement are negative. <Elida Stauffer - Last Filed: 10/02/24 14:44> ROS Other: All systems not noted in ROS Statement are negative. <Solomon Donohue - Last Filed: 10/02/24 20:07> ROS Statement: Those systems with pertinent positive or pertinent negative responses have been documented in the HPI. Past Medical History Past Medical History: Hypertension, Thyroid Disorder History of Any Multi-Drug Resistant Organisms: None Reported Past Surgical History: Ear Surgery Past Psychological History: No Psychological Hx Reported Smoking Status: Never smoker Past Alcohol Use History: None Reported Past Drug Use History: None Reported <Elida Stauffer - Last Filed: 10/02/24 14:44> General Exam Limitations: no limitations <Elida Stauffer - Last Filed: 10/02/24 14:44> Limitations: no limitations General appearance: alert, in no apparent distress Head exam: Present: atraumatic, normocephalic, normal inspection Eye exam: Present: normal appearance, PERRL, EOMI. Absent: scleral icterus, conjunctival injection, periorbital swelling ENT exam: Present: normal exam, mucous membranes moist Neck exam: Present: normal inspection. Absent: tenderness, meningismus, lymphadenopathy Respiratory exam: Present: normal lung sounds bilaterally. Absent: respiratory distress, wheezes, rales, rhonchi, stridor Cardiovascular Exam: Present: regular rate, normal rhythm, normal heart sounds. Absent: systolic murmur, diastolic murmur, rubs, gallop, clicks GI/Abdominal exam: Present: soft, normal bowel sounds. Absent: distended, tenderness, guarding, rebound, rigid Extremities exam: Present: full ROM, normal capillary refill, other (+3 cm crescent-shaped superficial avulsion of epidermal layer without significant bleeding, foreign body.). Absent: tenderness (Negative left wrist tenderness, crepitus, deformity. Negative left hip tenderness), pedal edema, joint swelling, calf tenderness Back exam: Present: normal inspection Neurological exam: Present: alert, oriented X3, CN II-XII intact Psychiatric exam: Present: normal affect, normal mood Skin exam: Present: warm, dry, intact, normal color. Absent: rash <Solomon Donohue - Last Filed: 10/02/24 20:07> - General Exam Comments Initial Comments: Visual Physical Exam Vital signs reviewed General: Well-appearing, nontoxic, no acute distress. Head: Normocephalic, atraumatic Eyes: PERRLA, EOMI ENT: Airway patent Chest: Nonlabored breathing Skin: No visual rash, normal skin tone Neuro: Alert and oriented 3 Musculoskeletal: No gross abnormalities (Elida Stauffer) Course Vital Signs 10/02/24 10/02/24 14:41 17:43 Temperature 97.3 F L Pulse Rate 72 70 Respiratory 20 17 Rate Blood Pressure 147/75 138/75 O2 Sat by Pulse 99 97 Oximetry Medical Decision Making <Elida Stauffer - Last Filed: 10/02/24 14:44> <Solomon Donohue - Last Filed: 10/02/24 20:07> - Medical Decision Making I performed the QuickNote portion of this chart. Signed Elida Stauffer PA-C. (Elida Stauffer) Was pt. sent in by a medical professional or institution (KRISTY Ozuna, ART PREPARATOR, urgent care, hospital, or halfway...) When possible be specific @ -No Did you speak to anyone other than the patient for history (EMS, parent, family, police, friend...)? What history was obtained from this source @ -No Did you review nursing and triage notes (agree or disagree)? Why? @ -I reviewed and agree with nursing and triage notes Were old charts reviewed (outside hosp., previous admission, EMS record, old EKG, old radiological studies, urgent care reports/EKG's, halfway records)? Report findings @ -No old charts were reviewed Differential Diagnosis (chest pain, altered mental status, abdominal pain women, abdominal pain men, vaginal bleeding, weakness, fever, dyspnea, syncope, headache, dizziness, GI bleed, back pain, seizure, CVA, palpatations, mental health, musculoskeletal)? @ -Differential Musculoskeletal Muscular strain, contusion, ligament sprain, fracture, arthritis, septic arthritis, bursitis, cellulitis, muscle spasm, nerve compression, DVT, arterial occlusion, herpes zoster, electrolyte abnormality, tumor.... This is not meant to be in all inclusive list EKG interpreted by me (3pts min.). @ -Not done X-rays interpreted by me (1pt min.). @ -Left hip and wrist x-ray showed no acute fracture or dislocation. CT interpreted by me (1pt min.). @ -None done U/S interpreted by me (1pt. min.). @ -None done What testing was considered but not performed or refused? (CT, X-rays, U/S, labs)? Why? @ -None What meds were considered but not given or refused? Why? @ -None Did you discuss the management of the patient with other professionals (florecita lindquist i.e. , PA, ART PREPARATOR, lab, RT, psych nurse, director social, microfilm operator, teacher, public health officer, case worker)? Give summary @ -No Was smoking cessation discussed for >3mins.? @ -No Was critical care preformed (if so, how long)? @ -No Were there social determinants of health that impacted care today? How? (Homelessness, low income, unemployed, alcoholism, drug addiction, transportation, low edu. Level, literacy, decrease access to med. care, residential, rehab)? @ -No Was there de-escalation of care discussed even if they declined (Discuss DNR or withdrawal of care, Hospice)? DNR status @ -No What co-morbidities impacted this encounter? (DM, HTN, Smoking, COPD, CAD, Cancer, CVA, ARF, Chemo, Hep., AIDS, mental health diagnosis, sleep apnea, morbid obesity)? @ -None Was patient admitted / discharged? Hospital course, mention meds given and route, prescriptions, significant lab abnormalities, going to OR and other pertinent info. @ -No significant fracture or dislocation seen in left hip or wrist x-ray. Left wrist laceration clean with normal saline and soap, flushed with normal saline and laceration edges adhered with Dermabondcovered with Sohail wrap. Advised to leave Dermabond applied for 1 week if possible and alternate Tylenol/Motrin every 4 hours for pain along with RICE. Discussed patient with Dr. Green. Undiagnosed new problem with uncertain prognosis? @ -No Drug Therapy requiring intensive monitoring for toxicity (Heparin, Nitro, Insulin, Cardizem)? @ -No Were any procedures done? @ -No Diagnosis/symptom? @ -Left wrist sprain with laceration, left hip contusion Acute, or Chronic, or Acute on Chronic? @ -Acute Uncomplicated (without systemic symptoms) or Complicated (systemic symptoms)? @ -Uncomplicated Side effects of treatment? @ -No Exacerbation, Progression, or Severe Exacerbation? @ -No Poses a threat to life or bodily function? How? (Chest pain, USA, [place], pneumonia, PE, COPD, DKA, ARF, appy, cholecystitis, CVA, Diverticulitis, Homicidal, Suici dhruv, threat to staff... and all critical care pts) @ -No (Solomon Donohue) Disposition <Elida Stauffer - Last Filed: 10/02/24 14:44> Is patient prescribed a controlled substance at d/c from ED?: No Time of Disposition: 17:26 <Solomon Donohue - Last Filed: 10/02/24 20:07> Clinical Impression: Sprain of wrist, left, Contusion of left hip, Laceration of wrist, left Disposition: HOME SELF-CARE Condition: Good Instructions (If sedation given, give patient instructions): Wrist Injury (ED), Hip Contusion (ED) Additional Instructions: Allow adhesive to remain in place for 7 days if possible. Alternate Tylenol/Motrin every 4 hours for pain. Rest, ice, compression, elevation for left wrist. Follow-up with PCP for any ongoing pain/symptoms. Referrals: Ryland Lemus DO [Primary Care Provider] - 1-2 days
--- NOTE | 2024-10-02 15:50 | XR ---
EXAMINATION TYPE: XR wrist complete LT DATE OF EXAM: 10/02/2024 3:42 PM COMPARISON: None CLINICAL INDICATION: Female, 84 years old with history of Fall; PHH, pain TECHNIQUE: XR wrist complete LT; examined in the Frontal, navicular, lateral, and oblique. FINDINGS: No acute osseous pathology, joint dislocation, or joint effusion. No evidence of any soft tissue swelling is seen. IMPRESSION: No acute osseous pathology. [facility], , 10/02/2024 3:48 PM
--- NOTE | 2024-10-02 15:51 | XR ---
EXAMINATION TYPE: XR Hip LT and AP Pelvis DATE OF EXAM: 10/02/2024 3:42 PM COMPARISON: None CLINICAL INDICATION: Female, 84 years old with history of Fall, pain TECHNIQUE: XR Hip LT and AP Pelvis; hip was examined in the frontal and lateral projections and a AP pelvis. FINDINGS: No evidence for acute process, joint dislocation or significant soft tissue swelling. Osteo phyte formation of the superior acetabulum of the hip. There is mild joint space narrowing. IMPRESSION: 1. No evidence for acute process. 2. Mild hip osteoarthrosis. [facility], , 10/02/2024 3:48 PM
[2024-10-02] MEDS: TOPICAL SKIN ADHESIVE 1 EACH AMP TOPICAL ONE (17:15)
[2024-10-02 17:45] VITALS: BP 138/75; PULSE 70; RESP 17
== END 2024-10-02 17:45 | disposition home or self-care (01) ==
LOC: EC 14:26
DX: S61.512A Laceration without foreign body of left wrist, initial encounter (principal); W01.0XXA Fall on same level from slipping, tripping and stumbling without subsequent striking against object, initial encounter
CPT/HCPCS: 73502; 99283

== ENCOUNTER → 2024-10-26 | Outpatient (CLI) | payer MEDICARE, BC ==
--- NOTE | 2024-10-26 14:49 | MM ---
Reason for Exam: Screening (asymptomatic). Last mammogram was performed 1 year(s) and 1 month(s) ago. Patient History: Menarche at age 13. First Full-Term at age 33. Late child-bearing (after 30). Postmenopausal. Patient has history of breast feeding. Estrogen for 4 years until age 62. 02/27/2002, Benign Stereotactic Core Biopsy on the left side. 07/29/2001, Benign Excisional Biopsy on the left side. 07/18/2001, Stereotactic Core Biopsy on the Left side. 12/27/2000, Benign Stereotactic Core Biopsy on the left side. Paternal aunt had breast cancer. Risk Values: Marita 5 year model risk: 2.9%. NCI Lifetime model risk: 3.2%. Prior Study Comparison: 09/13/2022 Bilateral MG screening mammo w CAD, [facility]. 09/20/2022 Right MG 3D work up w/cad RT, [facility]. 09/23/2023 Bilateral MG 3D diag mammo w/cad TEVIN, [facility]. Tissue Density: There are scattered areas of fibroglandular density. Findings: Analyzed By CAD. There is increasing group of indistinct calcifications in the middle depth upper aspect right breast. Overall Assessment: Incomplete: need additional imaging evaluation, BI-RAD 0 Management: Diagnostic Mammogram of the right breast. Return for additional spot magnification and 3-D true lateral views right breast. Patient should continue monthly self-breast exams. A clinical breast exam by your physician is recommended on an annual basis. This exam should not preclude additional follow-up of suspicious palpable abnormalities. Note on Marita scores and lifetime risk: 1. A Marita score greater than 3% is considered moderate risk. If this is the case, consider specialist referral to assess eligibility for a risk reducing agent. 2. If overall lifetime risk for the development of breast cancer is 20% or higher, the patient may qualify for future screening with alternating mammogram and breast MRI. [facility], , 10/26/2024 2:46 PM. Electronically signed and approved by: Will Baird M.D.
== END | disposition home or self-care (01) ==
LOC: RADMAMWWP 13:49
PROVIDERS: ATTEND Family Medicine
DX: Z12.31 Encounter for screening mammogram for malignant neoplasm of breast (principal); R92.323 Mammographic fibroglandular density, bilateral breasts; R92.1 Mammographic calcification found on diagnostic imaging of breast; Z78.0 Asymptomatic menopausal state; Z80.3 Family history of malignant neoplasm of breast
CPT/HCPCS: 77063; 77067

== ENCOUNTER → 2024-10-28 | Outpatient (CLI) | payer MEDICARE, BC ==
--- NOTE | 2024-10-28 11:20 | MM ---
Reason for Exam: Additional evaluation requested from abnormal screening. Last mammogram was performed 1 year(s) and 1 month(s) ago. Patient History: Menarche at age 13. First Full-Term at age 33. Late child-bearing (after 30). Postmenopausal. Patient has history of breast feeding. Estrogen for 4 years until age 62. 02/27/2002, Benign Stereotactic Core Biopsy on the left side. 07/29/2001, Benign Excisional Biopsy on the left side. 07/18/2001, Stereotactic Core Biopsy on the Left side. 12/27/2000, Benign Stereotactic Core Biopsy on the left side. Paternal aunt had breast cancer. Risk Values: Marita 5 year model risk: 2.9%. NCI Lifetime model risk: 3.2%. Prior Study Comparison: 04/25/2017 Bilateral Screening Mammogram, [facility]. 05/12/2018 Bilateral Screening Mammogram, [facility]. 05/27/2019 Bilateral Screening Mammogram, [facility]. 06/23/2020 Bilateral Screening Mammogram, [facility]. 09/12/2021 Bilateral MG screening mammo w CAD, [facility]. 09/13/2022 Bilateral MG screening mammo w CAD, [facility]. 09/20/2022 Right MG 3D work up w/cad RT, [facility]. 09/23/2023 Bilateral MG 3D diag mammo w/cad TEVIN, [facility]. 10/26/2024 Bilateral MG 3D screening mammo w/cad, [facility]. Tissue Density: Left: There are scattered areas of fibroglandular density. Findings: Analyzed By CAD. A new 3 mm group of heterogeneous calcifications on additional views and does not layer on true lateral views. Overall Assessment: Suspicious, BI-RAD 4 Management: Stereotactic Core Biopsy of the left breast. Tissue sampling is recommended. Results were given to the patient verbally at the time of exam. Patient should continue monthly self-breast exams. A clinical breast exam by your physician is recommended on an annual basis. This exam should not preclude additional follow-up of suspicious palpable abnormalities. Note on Marita scores and lifetime risk: 1. A Marita score greater than 3% is considered moderate risk. If this is the case, consider specialist referral to assess eligibility for a risk reducing agent. 2. If overall lifetime risk for the development of breast cancer is 20% or higher, the patient may qualify for future screening with alternating mammogram and breast MRI. [facility], , 10/28/2024 8:35 AM. Electronically signed and approved by: Will Baird M.D.
== END | disposition home or self-care (01) ==
LOC: RADMAMWWP 07:38
PROVIDERS: ATTEND Family Medicine
DX: R92.8 Other abnormal and inconclusive findings on diagnostic imaging of breast (principal); R92.322 Mammographic fibroglandular density, left breast; R92.1 Mammographic calcification found on diagnostic imaging of breast; Z78.0 Asymptomatic menopausal state; Z80.3 Family history of malignant neoplasm of breast
CPT/HCPCS: 77065; G0279; 77061

== ENCOUNTER → 2024-11-12 | Day surgery (SDC) | payer MEDICARE, BC ==
[2024-11-12] MEDS: ALPRAZolam 0.25 MG TAB PO PRN (10:17)
[2024-11-12 10:29] VITALS: RESP 16; TEMP 98.1
[2024-11-12 11:35] VITALS: BP 126/73; PULSE 54
--- NOTE | 2024-11-23 14:21 | MM ---
Risk Values: Marita 5 year model risk: 2.9%. NCI Lifetime model risk: 3.2%. Prior Study Comparison: 09/23/2023 Bilateral MG 3D diag mammo w/cad TEVIN, [facility]. 10/26/2024 Bilateral MG 3D screening mammo w/cad, [facility]. 10/28/2024 Left MG 3D work up w/cad LT, [facility]. Pathology Description: Location: middle. Marker Left Behind. Specimen Radiograph. Calcium Found: Yes Needle Type: Eviva Cores: 13 Skin Nicks: 1 Gauge: 9 The procedure of stereotactic guided core biopsy was explained to the patient. Benefits, alternatives, and risks were discussed. An informed consent was then obtained. The shortness pathway for biopsy was chosen. Shortness pathway was superior approach. A vacuum assisted biopsy gun was used to obtain multiple core samples. The patient tolerated the procedure well without any immediate complication. The patient was kept in the radiology department for short stay after the procedure and then discharged home in stable condition. Targeted calcifications are identified in specimen mammogram. Post biopsy mammogram performed shows the clip to appear in satisfactory position relative to the targeted area of concern on the preprocedure images. Impression: Successful, Uncomplicated Stereotactic Guided Core Biopsy Of Area Of Concern In The left Breast. [facility], , 11/12/2024 12:19 PM. Pathology Results: Result: Benign, Fibrocystic change. Pathology and radiology were reviewed. Findings are concordant. LEFT BREAST, STEREOTACTIC NEEDLE CORE BIOPSY: Benign breast with fibrocystic changes including calcifications and focal scar/fibrosis. Overall Assessment: Benign Management: Diagnostic Mammogram of the left breast in 6 months. Electronically signed and approved by: John Ross DO
== END ==
LOC: RADMAMWWP 10:02
PROVIDERS: ATTEND Surgery
DX: L90.5 Scar conditions and fibrosis of skin (principal); N60.32 Fibrosclerosis of left breast; R92.8 Other abnormal and inconclusive findings on diagnostic imaging of breast
CPT/HCPCS: 88305